=== PATIENT | female | born 1985 | race Caucasian/White ===

== ENCOUNTER 2018-03-26 14:15 | Outpatient (CLI) | payer OTHER | END 2018-03-26 14:16 | disposition home or self-care (01) | LOC: LAB.N 14:15 | PROVIDERS: ATTEND Nurse Practitioner | DX: Z32.00 Encounter for pregnancy test, result unknown (principal) | CPT/HCPCS: 36415; 84702 ==

== ENCOUNTER 2018-03-28 08:00 | Outpatient (CLI) | payer OTHER | END 2018-03-28 08:01 | disposition home or self-care (01) | LOC: LAB.N 08:00 | PROVIDERS: ATTEND Nurse Practitioner | DX: Z33.1 Pregnant state, incidental (principal) | CPT/HCPCS: 36415; 84702 ==

== ENCOUNTER 2018-04-15 08:00 | Outpatient (CLI) | payer OTHER ==
[2018-04-15 16:33] LABS: MUDS CUTOFF CONCENTRATIONS CUTOFF CONC BELOW:
[2018-04-15 17:04] LABS: AMPHETAMINE SCREEN,URINE NEGATIVE (NEGATIVE); BENZODIAZEPINES SCREEN, URINE NEGATIVE (NEGATIVE); COCAINE SCREEN URINE NEGATIVE (NEGATIVE); METHADONE SCREEN, URINE NEGATIVE (NEGATIVE); METHAMPHETAMINES SCREEN, URINE NEGATIVE (NEGATIVE); OPIATE SCREEN, URINE NEGATIVE (NEGATIVE); OXYCODONE SCREEN, URINE NEGATIVE (NEGATIVE); PROPOXYPHENE SCREEN, URINE NEGATIVE (NEGATIVE); TRICYCLIC ANTIDEPRESSANT,URINE NEGATIVE (NEGATIVE)
== END 2018-04-15 08:01 | disposition home or self-care (01) ==
LOC: LAB.R 08:00
PROVIDERS: ATTEND Obstetrics & Gynecology
DX: Z36.9 Encounter for antenatal screening, unspecified (principal)
CPT/HCPCS: 80306

== ENCOUNTER 2018-04-15 10:59 | Outpatient (CLI) | payer OTHER ==
[2018-04-15 12:04] LABS: BASOPHILS % (AUTO) 0.5 %; EOSINOPHILS # (AUTO) 0.1 10^3/uL (0.0-0.7); EOSINOPHILS % (AUTO) 1.2 %; HGB - HEMOGLOBIN 13.1 g/dL (12.0-16.0); LYMPHOCYTES # (AUTO) 1.3 10^3/uL (1.5-3.5); LYMPHOCYTES % (AUTO) 17.8 %; MEAN CORPUSCULAR HEMOGLOBIN 31.8 pg (27.0-31.0); MEAN CORPUSCULAR HGB CONC 34.1 g/dL (32.0-36.0); MEAN CORPUSCULAR VOLUME 93.2 fL (81.0-99.0); MONOCYTES # (AUTO) 0.5 10^3/uL (0.0-1.0); MONOCYTES % (AUTO) 6.1 %; NEUTROPHILS # (AUTO) 5.6 10^3/uL (1.5-6.6); NEUTROPHILS % (AUTO) 74.4 %; PLT - PLATELET COUNT 252 10^3/uL (130-450); RED BLOOD COUNT 4.14 10^6/uL (4.20-5.40); RED CELL DISTRIBUTION WIDTH 12.6 % (12.0-15.0); WHITE BLOOD COUNT 7.6 x10^3/uL (4.8-10.8)
[2018-04-15 12:06] LABS: BILIRUBIN,URINE NEGATIVE (NEGATIVE); GLUCOSE, URINE (UA) NEGATIVE (NEGATIVE); KETONES,URINE (UA) NEGATIVE (NEGATIVE); LEUKOCYTE ESTERASE, URINE NEGATIVE (NEGATIVE); NITRITE,URINE NEGATIVE (NEGATIVE); OCCULT BLOOD,URINE NEGATIVE (NEGATIVE); PROTEIN,URINE NEGATIVE (NEGATIVE); UROBILINOGEN,URINE 0.2 (NORMAL) E.U./dL (NORMAL)
[2018-04-15 12:14] LABS: CLARITY,URINE CLEAR (CLEAR)
[2018-04-15 12:17] LABS: RBC,URINE 0-5 /HPF (0-5); SQUAMOUS EPITHELIAL CELL,UR RARE Squamous (<= Few)
[2018-04-15 12:18] LABS: BACTERIA,URINE Rare /HPF (None Seen)
[2018-04-16 11:26] LABS: HEPATITIS B SURFACE ANTIGEN NON-REACTIVE (NON-REACTIVE)
[2018-04-16 12:31] LABS: HEPATITIS C ANTIBODY NON-REACTIVE (NON-REACTIVE)
[2018-04-16 14:01] LABS: HIV AG/AB 4TH GEN NON-REACTIVE (NON-REACTIVE)
== END 2018-04-15 11:00 | disposition home or self-care (01) ==
LOC: LAB 10:59
PROVIDERS: ATTEND Obstetrics & Gynecology
DX: Z36.9 Encounter for antenatal screening, unspecified (principal)
CPT/HCPCS: 36415; 80306; 81001; 81599; 84702; 85025; 86762; 86803; 86850; 86900; 86901; 87340; 87389

== ENCOUNTER 2018-04-22 19:54 | Outpatient (CLI) | payer OTHER ==
--- NOTE | 2018-04-23 10:45 | Ultrasound Report ---
Procedure Date: 04/22/2018 Accession Number: [id number] / [id number] Procedure: US - OB First Trimester CPT Code: FULL RESULT: EXAM: OB First Trimester, OB Transvaginal DATE: 04/22/2018 9:45 PM CLINICAL HISTORY: ENCOUNTER FOR TEST,RESULT POSITIVE TECHNIQUE: Real-time scanning was performed with termite control service representative static images obtained. COMPARISON: None LAST MENSTRUAL PERIOD: 01/25/2018. FINDINGS: There is a single live intrauterine gestation with a heart rate of 171 bpm a gestational sac diameter of 38.5 mm a crown-rump length of 35.7 mm and a yolk sac 6 mm in size. The sonographic age by crown-rump length is 10 weeks and 3 days. There is a posterior placenta with a 2.1 x 1.1 cm perigestational fluid collection. The maternal uterus is anteverted with a closed cervix. The right ovary measures 3.1 x 1.5 x 2.3 cm for a volume of 5.4 mL. The left ovary measures 2.8 x 1.7 x 2.2 cm for a volume of 5.4 mL. IMPRESSION: Single live intrauterine gestation with a sonographic age of 10 weeks and 3 days. Small perigestational hemorrhage measuring up to 2.1 cm.
--- NOTE | 2018-04-25 04:06 | Ultrasound Report ---
Procedure Date: 04/22/2018 Accession Number: [id number] / [id number] Procedure: US - OB Transvaginal CPT Code: FULL RESULT: EXAM: OB First Trimester, OB Transvaginal DATE: 04/22/2018 9:45 PM CLINICAL HISTORY: ENCOUNTER FOR TEST,RESULT POSITIVE TECHNIQUE: Real-time scanning was performed with data entry representative static images obtained. COMPARISON: None LAST MENSTRUAL PERIOD: 01/25/2018. FINDINGS: There is a single live intrauterine gestation with a heart rate of 171 bpm a gestational sac diameter of 38.5 mm a crown-rump length of 35.7 mm and a yolk sac 6 mm in size. The sonographic age by crown-rump length is 10 weeks and 3 days. There is a posterior placenta with a 2.1 x 1.1 cm perigestational fluid collection. The maternal uterus is anteverted with a closed cervix. The right ovary measures 3.1 x 1.5 x 2.3 cm for a volume of 5.4 mL. The left ovary measures 2.8 x 1.7 x 2.2 cm for a volume of 5.4 mL. IMPRESSION: Single live intrauterine gestation with a sonographic age of 10 weeks and 3 days. Small perigestational hemorrhage measuring up to 2.1 cm.
== END 2018-04-22 19:55 | disposition home or self-care (01) ==
LOC: DI 19:54
PROVIDERS: ATTEND Obstetrics & Gynecology
DX: Z32.01 Encounter for pregnancy test, result positive (principal); Z87.59 Personal history of other complications of pregnancy, childbirth and the puerperium
CPT/HCPCS: 76801; 76817

== ENCOUNTER 2018-05-27 11:07 | Outpatient (CLI) | payer OTHER | END 2018-05-27 11:08 | disposition home or self-care (01) | LOC: LAB 11:07 | PROVIDERS: ATTEND Obstetrics & Gynecology | DX: Z36.9 Encounter for antenatal screening, unspecified (principal); Z3A.15 15 weeks gestation of pregnancy | CPT/HCPCS: 36415; 80050; 80061; 81599; 82105; 82677; 83721; 84153; 84702; 86336 ==

== ENCOUNTER 2018-07-02 12:49 | Outpatient (CLI) | payer OTHER ==
--- NOTE | 2018-07-02 15:12 | Ultrasound Report ---
Reason: ENCOUNTER FOR OTHER SPECIFIED SCREENING Procedure Date: 07/02/2018 Accession Number: [id number] / [id number] Procedure: US - OB Detailed Eval CPT Code: FULL RESULT: EXAM: COMPLETE OBSTETRICAL ULTRASOUND EXAM DATE: 07/02/2018 02:06 PM. CLINICAL HISTORY: anatomic survey. COMPARISON: None. TECHNIQUE: Real-time sonographic evaluation of the fetus performed by the commercial roofing estimator. Multiple dental detail representative static images were saved for review. Additional transvaginal imaging to more accurately evaluate cervical length/placental position/etc. DATING: Established EGA 22 weeks 5 days with EWA 11/01/2018 based on LMP. EGA 20 weeks 4 days with EWA 11/15/2018 based on prior ultrasound. EGA 20 weeks 3 days with EWA 11/16/2018 based on the current ultrasound. GENERAL EVALUATION Joseph . Cardiac activity: 138 bpm. movement: Visualized. Presentation: Cephalic. Placenta: Posterior position. No evidence for previa. Umbilical cord: 3 vessel cord. Central placental cord origin. Amniotic fluid: Subjectively normal. MVP 4.1 cm. BIOMETRY Bi-Parietal Diameter (BPD): 4.7 cm, 20 weeks 1 day Head Circumference (HC): 18.8 cm, 21 weeks 0 days Abdominal Circumference (AC): 15.8 cm, 20 weeks 6 days Femur Length (FL): 3.3 cm, 20 weeks 1 day Estimated Weight: 367 gm ANATOMY The intracranial structures, profile, face/nose/lips, spine, stomach, abdominal wall and cord insertion, diaphragm, kidneys, bladder, and extremities were visualized and demonstrate no abnormality. 4 chamber heart and outflow tracts are not well evaluated on today's examination. MATERNAL STRUCTURES Uterus: Unremarkable. Cervix: Long and closed. Transabdominal length 6.7 cm. Right ovary/adnexa: Unremarkable. Left ovary/adnexa: Unremarkable. Free fluid: None. IMPRESSION: 1. Joseph live intrauterine with gestational age 20 weeks 4 days based on established EGA. 2. Estimated weight is within expected limits for assigned dating. 3. 4 chamber heart and outflow tracts are not well evaluated on today's examination. Recommend limited follow-up, for example in 1-2 weeks. No abnormalities are seen in other regards. RADIA
== END 2018-07-02 12:50 | disposition home or self-care (01) ==
LOC: DI 12:49
PROVIDERS: ATTEND Obstetrics & Gynecology
DX: Z36.89 Encounter for other specified antenatal screening (principal)
CPT/HCPCS: 76811

== ENCOUNTER 2018-07-18 11:13 | Outpatient (CLI) | payer OTHER ==
--- NOTE | 2018-07-18 14:47 | Ultrasound Report ---
Reason: ENCOUNTER FOR OTHER SCREENING, FOLLOW UP Procedure Date: 07/18/2018 Accession Number: [id number] / [id number] Procedure: US - OB F/U or Repeat CPT Code: FULL RESULT: EXAM: COMPLETE OBSTETRICAL ULTRASOUND EXAM DATE: 07/18/2018 12:29 PM. CLINICAL HISTORY: anatomic survey. COMPARISON: OB DETAILED EVAL 07/02/2018 12:50 PM OB FIRST TRIMESTER 04/22/2018 9:16 PM. TECHNIQUE: Real-time sonographic evaluation of the fetus performed by the butcher meat. Multiple safety representative static images were saved for review. DATING: Established EGA 22 weeks 6 days with EWA 11/15/2018 based on physician assigned due date based on first ultrasound. GENERAL EVALUATION Joseph . Cardiac activity: 163 bpm. movement: Visualized. Presentation: Cephalic. Placenta: Posterior position. No evidence for previa. Amniotic fluid: 17.1 MVP 5.3 cm. biometry is not performed given the close proximity to the most recent examination. ANATOMY Cardiac structures appear normal on the four-chamber view, left ventricular outflow tract and right ventricular outflow tract view completing the anatomy survey. MATERNAL STRUCTURES Uterus: Unremarkable. Cervix: Long and closed. Transabdominal length 5.8 cm. Adnexa were not seen. Free fluid: None. IMPRESSION: 1. Joseph live intrauterine with gestational age 22 weeks 6 days based on physician supplied estimated due date based on first ultrasound. 2. Normal completion anatomic survey. No anatomic abnormalities are detected at this time. RADIA
== END 2018-07-18 11:14 | disposition home or self-care (01) ==
LOC: DI 11:13
PROVIDERS: ATTEND Obstetrics & Gynecology
DX: Z36.2 Encounter for other antenatal screening follow-up (principal)
CPT/HCPCS: 76816

== ENCOUNTER 2018-08-22 09:33 | Outpatient (CLI) | payer OTHER ==
[2018-08-22 10:53] LABS: HGB - HEMOGLOBIN 12.6 g/dL (12.0-16.0); MEAN CORPUSCULAR HEMOGLOBIN 31.8 pg (27.0-31.0); MEAN CORPUSCULAR HGB CONC 35.1 g/dL (32.0-36.0); MEAN CORPUSCULAR VOLUME 90.7 fL (81.0-99.0); MEAN PLATELET VOLUME 7.4 fL (7.9-10.8); RED BLOOD COUNT 3.97 10^6/uL (4.20-5.40); RED CELL DISTRIBUTION WIDTH 12.9 % (12.0-15.0); WHITE BLOOD COUNT 9.8 x10^3/uL (4.8-10.8)
== END 2018-08-22 09:34 | disposition home or self-care (01) ==
LOC: LAB 09:33
PROVIDERS: ATTEND Obstetrics & Gynecology
DX: O34.211 Maternal care for low transverse scar from previous cesarean delivery (principal)
CPT/HCPCS: 36415; 82950; 85027; 86850

== ENCOUNTER 2018-10-06 12:33 | Outpatient (CLI) | payer OTHER ==
--- NOTE | 2018-10-06 14:03 | Ultrasound Report ---
Reason: EXCESSIVE GROWTH,ANTEPARTUM,UNSPECIFIED TRIM Procedure Date: 10/06/2018 Accession Number: [id number] / [id number] Procedure: US - OB F/U or Repeat CPT Code: FULL RESULT: EXAM: FOLLOW-UP OBSTETRICAL ULTRASOUND EXAM DATE: 10/06/2018 12:40 PM. CLINICAL HISTORY: Excessive growth, antepartum, unspecified trim. COMPARISON: OB F/U OR REPEAT 07/18/2018 12:29 PM OB DETAILED EVAL 07/02/2018 12:50 PM. TECHNIQUE: Real-time sonographic evaluation of the fetus performed by the sheet heater helper. Multiple guest experience representative static images were saved for review. DATING: Established EGA 34 weeks 2 days with EWA 11/15/2018 based on obstetric physician information. section is scheduled 11/12/2018. GENERAL EVALUATION Joseph . Cardiac activity: 152 bpm. movement: Visualized. Presentation: Cephalic. Placenta: Posterior position. Amniotic fluid: LUIS 21.8 cm. MVP 7.6 cm. BIOMETRY Bi-Parietal Diameter (BPD): 8.9 cm, 36 weeks 1 day Head Circumference (HC): 32.7 cm, 37 weeks 1 day Abdominal Circumference (AC): 30.8 cm, 34 weeks 6 days Femur Length (FL): 6.5 cm, 33 weeks 4 days Estimated Weight: 2522 grams, 60th percentile for 34 weeks 2 days. IMPRESSION: 1. Joseph live intrauterine with gestational age 34 weeks 2 days based on obstetric physician stated gestational age. 2. Estimated weight is within expected limits for assigned dating. 3. Normal interval growth compared to 07/02/2018. RADIA
== END 2018-10-06 12:34 | disposition home or self-care (01) ==
LOC: DI 12:33
PROVIDERS: ATTEND Obstetrics & Gynecology
DX: O36.60X0 Maternal care for excessive fetal growth, unspecified trimester, not applicable or unspecified (principal); Z3A.34 34 weeks gestation of pregnancy
CPT/HCPCS: 76816

== ENCOUNTER 2018-10-21 08:00 | Outpatient (CLI) | payer OTHER | END 2018-10-21 23:59 | disposition home or self-care (01) | LOC: LAB.R 08:00 | PROVIDERS: ATTEND Obstetrics & Gynecology | DX: Z3A.36 36 weeks gestation of pregnancy (principal) | CPT/HCPCS: 87491; 87591; 87797 ==

== ENCOUNTER 2018-11-11 11:49 | Outpatient (CLI) | payer OTHER ==
[2018-11-11 12:06] LABS: BASOPHILS # (AUTO) 0.1 10^3/uL (0.0-0.1); BASOPHILS % (AUTO) 0.7 %; EOSINOPHILS % (AUTO) 0.5 %; HGB - HEMOGLOBIN 13.4 g/dL (12.0-16.0); LYMPHOCYTES # (AUTO) 1.4 10^3/uL (1.5-3.5); LYMPHOCYTES % (AUTO) 15.8 %; MEAN CORPUSCULAR HEMOGLOBIN 31.2 pg (27.0-31.0); MEAN CORPUSCULAR HGB CONC 34.8 g/dL (32.0-36.0); MEAN CORPUSCULAR VOLUME 89.6 fL (81.0-99.0); MEAN PLATELET VOLUME 8.2 fL (7.9-10.8); MONOCYTES # (AUTO) 0.7 10^3/uL (0.0-1.0); MONOCYTES % (AUTO) 7.2 %; NEUTROPHILS # (AUTO) 6.9 10^3/uL (1.5-6.6); NEUTROPHILS % (AUTO) 75.8 %; PLT - PLATELET COUNT 211 10^3/uL (130-450); RED BLOOD COUNT 4.29 10^6/uL (4.20-5.40); RED CELL DISTRIBUTION WIDTH 13.6 % (12.0-15.0)
[2018-11-11 12:14] LABS: CREATININE 0.5 mg/dL (0.4-1.0)
== END 2018-11-11 11:50 | disposition home or self-care (01) ==
LOC: LAB 11:49
PROVIDERS: ATTEND Obstetrics & Gynecology
DX: Z01.818 Encounter for other preprocedural examination (principal); O82 Encounter for cesarean delivery without indication; Z3A.00 Weeks of gestation of pregnancy not specified
CPT/HCPCS: 36415; 80048; 85025; 86850; 86900; 86901

== ENCOUNTER 2018-11-12 05:52 | Inpatient (IN) | payer OTHER ==
[2018-11-12] MEDS ORDERED: SODIUM CHLORIDE FLUSH 0.9% 10 ML SYRINGE ONE (06:08)
[2018-11-12] MEDS ORDERED: ceFAZolin 2 GM in SODIUM CHLORIDE 0.9% 100ML 100 ML IV SCH (06:30)
--- NOTE | 2018-11-12 06:54 | ANESTHESIA ---
Pre-Anesthesia VS, & Labs - Diagnosis previous C/S - Procedure repeat c/s Vital Signs: Temp Pulse Resp BP Pulse Ox 36.8 C 70 16 125/78 99 11/12/18 06:44 11/12/18 06:44 11/12/18 06:44 11/12/18 06:44 11/12/18 06:44 Height 5 ft 1 in Weight (kg) 72.575 kg - NPO >8 hours - Is Patient ?: Yes - Lab Results Current Lab Results: Hbg-13, hct-34, plat 211 Home Medications and Allergies Active Medications Cefazolin Sodium 2 gm/ Sodium (Chloride) 100 mls @ 200 mls/hr IV ONCE ECHO Stop: 11/12/18 09:00 Lactated Ringer's (Lr) 1,000 mls @ 125 mls/hr IV .Q8H ECHO PNV Allergies/Adverse Reactions: Allergies Allergy/AdvReac Type Severity Reaction Status Date / Time No Known Drug Allergies Allergy Verified 11/12/18 06:42 Anes History & Medical History - Medical History Cardiovascular: reports: None Pulmonary: reports: None Gastrointestinal: reports: None Urinary: reports: None Neuro: reports: None Musculoskeletal: reports: None Endocrine/Autoimmune: reports: None Blood Disorders: reports: None Smoking Status: Former smoker (quit 2009) Psychosocial: reports: Anxiety - Surgical History General: Cholecystectomy Gynecologic: section - Obstetrical History : 2 Parity: 1 Events: positive: None Complications: positive: None Exam General: Alert, Oriented x3, Cooperative, No acute distress Dental: WNL Mouth Openin Fingerbreadth Neck Mobility: Normal Mallampati classification: II Thyromental Distance: 4-6 cm Respiratory: Lungs clear, Normal breath sounds, No respiratory distress, No accessory muscle use Cardiovascular: Regular rate, Normal S1, Normal S2, No murmurs Mental/Cognitive Status: Alert/Oriented X3, Normal for patient Plan Anesthesia Type: Spinal Consent for Procedure(s) Verified and Reviewed: Yes Code Status: Attempt Resuscitation ASA classification: 2-Mild systemic disease Is this case an emergency?: No
[2018-11-12] MEDS ORDERED: CITRIC ACID/SODIUM CITRATE 15 ML UDC PO SCH (07:03)
[2018-11-12] MEDS ORDERED: CITRIC ACID/SODIUM CITRATE 15 ML UDC PO ONE ×2 (07:21→07:24)
[2018-11-12] MEDS ORDERED: LACTATED RINGERS 1,000 ML IV ONE ×2 (08:11→09:13)
[2018-11-12] MEDS ORDERED: ePHEDrine 50 MG/ML VIAL IVP ONE (08:43)
[2018-11-12] MEDS ORDERED: ONDANSETRON 4 MG/2 ML VIAL IVP ONE (08:43)
[2018-11-12] MEDS ORDERED: MORPHINE PF 5 MG/10 ML AMP EP ONE (08:43)
[2018-11-12] MEDS ORDERED: OXYTOCIN 10 UNIT/ML VIAL IV ONE (08:43)
[2018-11-12] MEDS ORDERED: ONDANSETRON 4 MG/2 ML VIAL IVP PRN (09:16)
[2018-11-12] MEDS ORDERED: diphenhydrAMINE 25 MG CAPSULE PO PRN (09:16)
--- NOTE | 2018-11-12 09:22 | OPERATIVE REPORT ---
Operative Report - General Admit Date: 11/12/18 Procedure Date: 11/12/18 Planned Procedure: Repeat LTC/S Pre-Op Diagnosis: term cyesis, prior C/S Procedure Performed: repeat LTC/S Post Op Diagnosis: Same - Procedure Note Primary Surgeon: Gianni Shi MD Secondary Surgeon: Giovanni Hurt DO Anesthesia Provider: Raheem Roldan CRNA Anesthesia Technique: Spinal Pathology: NONE Estimated Blood Loss (mL): 600 - Other Other Information/Narrative: [id number]
--- NOTE | 2018-11-12 10:09 | OPERATIVE REPORT ---
DATE OF SERVICE: 11/12/2018 Physician: Gianni Shi MD PREOPERATIVE DIAGNOSES 1. Term cyesis. 2. Previous section. POSTOPERATIVE DIAGNOSES 1. Term cyesis. 2. Previous section. PROCEDURE PERFORMED: Repeat low transverse section. SURGEON: Gianni Shi MD. SENIOR DIRECTOR INSIGHT: Carlos Dugan DO. ANESTHESIA PROVIDER: Dany Roldan CRNA. ANESTHESIA: Spinal. ESTIMATED BLOOD LOSS: 600 mL. FINDINGS: Live male . was in the left occiput anterior, normal pelvis, placenta posterior. DESCRIPTION OF PROCEDURE: Following an adequate spinal anesthesia, the patient was placed in the supine position. Mobley catheter was placed under sterile condition, and a roll was placed under the right hip. At this point, she was prepped and draped in the usual fashion. A timeout was performed in which the patient was identified as well as potential concerns. An incision was carried down through the previous Pfannenstiel incision, down to the fascia. The fascia was incised transversely. Then, using both sharp and blunt dissection, was freed from the rectus abdominis and pyramidalis. The rectus had some adhesions at the midline. These were taken down utilizing a knife. The peritoneum was tented with hemostat and then entered using Mera scissors. The incision was carried superiorly and inferiorly. Care was taken to avoid injury to bowel or bladder. At this point, a bladder retractor was placed and bladder flap was developed using both blunt and sharp dissection. The lower uterine segment was noted to be somewhat tenuous. The incision was carried into the uterus with a #10 blade. The membranes were not ruptured. The incision was carried laterally using Mera scissors and then the finger spread technique. The amniotic membranes were then ruptured, and clear amniotic fluid was encountered. The infant was noted to be left occiput transverse. It was brought up to the incision, and with some difficulty was brought through the incision. A loose nuchal cord was found at this particular time. The remainder of the was delivered without difficulty. The cord was doubly clamped, divided, and handed to the nursery team that was standing by. At this point, cord blood samples were obtained, and then the uterus was exteriorized. The placenta was manually delivered and noted to be posterior to the uterus. It was wrapped in a moist lap and then cleansed in the internal portion with a dry lap. The lower portions of the incision were grasped with ring forceps. The cervix was dilated with a ring forceps, and then incision was closed using a running locking suture of 0 Vicryl. There was some difficulty with bleeding on the left hand side of the uterine incision. This was treated with 2 gvqtmd-ln-diawmx, with good hemostasis. The incision was then imbricated, and then there was some bleeding at the midline. This was also treated with a rseevn-wb-nhlbu. The incision was inspected. No further bleeding was noted. The uterus was tipped forward. The cul-de-sac was suctioned clear of any clot, then irrigated. The uterus was delivered back in the abdominal cavity. The gutters were likewise irrigated. No further blood was noted, and the incision was inspected and noted to not be bleeding. The peritoneum was closed utilizing 2-0 Vicryl, the rectus reapproximated with 2 kkwxjx-kp-miynal of 2-0 Vicryl, and the incision itself was closed utilizing looped PDS. This was noted to show a good closure. The subcutaneous tissue was irrigated. No bleeding was noted, so the area was closed utilizing 2-0 Vicryl in a running suture. The skin incision was closed using 4-0 Monocryl, and then dressed with Mastisol as well as Steri-Strips. The patient tolerated the procedure well and was taken to recovery in stable condition. Sponge and needle counts were correct. TD: 11/12/2018 09:34 ARCHIE
[2018-11-12] MEDS: ACETAMINOPHEN 500 MG TABLET PO SCH ×2 (10:30→18:03)
[2018-11-12] MEDS: KETOROLAC 30 MG/ML VIAL IVP SCH ×2 (10:30→18:03)
[2018-11-12] MEDS: SODIUM CHLORIDE FLUSH 0.9% 10 ML SYRINGE IVP SCH ×2 (10:30→18:03)
[2018-11-12] MEDS: DOCUSATE SODIUM 100 MG CAPSULE PO SCH ×2 (10:44→22:33)
[2018-11-12] MEDS: SODIUM CHLORIDE FLUSH 0.9% 10 ML SYRINGE IVP PRN (11:09)
[2018-11-12] MEDS: SIMETHICONE CHEW 80 MG TABLET PO SCH ×2 (18:03→18:22)
[2018-11-12] MEDS: LACTATED RINGERS 1,000 ML IV SCH ×2 (18:21)
[2018-11-12] MEDS ORDERED: oxyCODONE 5 MG TABLET PO PRN (20:56)
[2018-11-13] MEDS: KETOROLAC 30 MG/ML VIAL IVP SCH ×2 (00:25→06:19)
[2018-11-13] MEDS: SODIUM CHLORIDE FLUSH 0.9% 10 ML SYRINGE IVP SCH ×2 (00:25→18:17)
[2018-11-13] MEDS: ACETAMINOPHEN 500 MG TABLET PO SCH ×3 (02:28→16:47)
[2018-11-13] MEDS: SODIUM CHLORIDE FLUSH 0.9% 10 ML SYRINGE IVP PRN ×2 (06:18→06:19)
[2018-11-13 06:36] LABS: BASOPHILS % (AUTO) 0.4 %; EOSINOPHILS # (AUTO) 0.1 10^3/uL (0.0-0.7); EOSINOPHILS % (AUTO) 0.8 %; HGB - HEMOGLOBIN 11.4 g/dL (12.0-16.0); LYMPHOCYTES # (AUTO) 1.4 10^3/uL (1.5-3.5); LYMPHOCYTES % (AUTO) 11.9 %; MEAN CORPUSCULAR HEMOGLOBIN 31.4 pg (27.0-31.0); MEAN CORPUSCULAR HGB CONC 34.6 g/dL (32.0-36.0); MEAN CORPUSCULAR VOLUME 90.9 fL (81.0-99.0); MONOCYTES # (AUTO) 1.1 10^3/uL (0.0-1.0); NEUTROPHILS # (AUTO) 9.3 10^3/uL (1.5-6.6); NEUTROPHILS % (AUTO) 77.9 %; PLT - PLATELET COUNT 179 10^3/uL (130-450); RED BLOOD COUNT 3.63 10^6/uL (4.20-5.40); WHITE BLOOD COUNT 11.9 x10^3/uL (4.8-10.8)
--- NOTE | 2018-11-13 08:27 | PROVIDER PROGRESS NOTE ---
Subjective - General Admit Date: 11/12/18 Procedure Date: 11/12/18 Post Op Days: 1 Procedure Performed: PLTC/S - Review of Systems Wound/Incisions: positive: Dressing dry and intact General: positive: No symptoms (Pain 2-3/10. Ambulating) Pulmonary: positive: Cough (long standing) Gastrointestinal: negative: Nausea, Vomiting, Flatus Objective - Patient Data Reviewed Vital Signs: Yes Vital Signs: Vital Signs x48h Temp Pulse Resp BP Pulse Ox 11/13/18 07:52 37 C 75 18 100 11/13/18 06:30 16 11/13/18 05:35 18 11/13/18 04:20 36.6 C 80 16 114/60 97 11/13/18 03:00 16 11/13/18 02:00 18 11/13/18 01:00 16 Weight: Weight 11/11/18 11/12/18 11/13/18 23:59 23:59 23:59 Weight (kg) 72.575 kg Intake & Output: Intake and Output Totals x24h 11/11/18 11/12/18 11/13/18 23:59 23:59 23:59 Intake Total 2300 Output Total 2250 675 Balance 50 -675 - Lab Results Lab Results: 11/13/18 06:28 Other Lab Results: Lab Results x24hrs 11/13/18 Range/Units 06:28 WBC 11.9 H (4.8-10.8) x10^3/uL RBC 3.63 L (4.20-5.40) 10^6/uL Hgb 11.4 L (12.0-16.0) g/dL Hct 33.0 L (37.0-47.0) % MCV 90.9 (81.0-99.0) fL MCH 31.4 H (27.0-31.0) pg MCHC 34.6 (32.0-36.0) g/dL RDW 14.0 (12.0-15.0) % Plt Count 179 (130-450) 10^3/uL MPV 8.0 (7.9-10.8) fL Neut # (Auto) 9.3 H (1.5-6.6) 10^3/uL Lymph # (Auto) 1.4 L (1.5-3.5) 10^3/uL Dundy # (Auto) 1.1 H (0.0-1.0) 10^3/uL Eos # (Auto) 0.1 (0.0-0.7) 10^3/uL Baso # (Auto) 0.0 (0.0-0.1) 10^3/uL Absolute Nucleated RBC 0.00 x10^3/uL Nucleated RBC % 0.0 /100WBC - Current Medications Current Medications: Current Medications Generic Name Dose Route Start Last Admin Trade Name Freq PRN Reason Stop Dose Admin Acetaminophen 1,000 mg 11/12/18 10:00 11/13/18 02:28 Tylenol PO 1,000 mg Q8H ECHO Administration Diphenhydramine HCl 25 mg 11/12/18 09:16 11/12/18 11:09 Benadryl PO 25 mg Q6H PRN Administration ITCHING Docusate Sodium 100 mg 11/12/18 10:00 11/12/18 22:33 Colace 100mg Capsule PO 100 mg BID ECHO Administration Lactated Ringer's 1,000 mls @ 100 mls/hr 11/12/18 10:00 11/12/18 18:21 Lr IV Not Given .Q10H ECHO Simethicone 80 mg 11/12/18 14:00 11/12/18 18:22 Mylicon PO Not Given TID ECHO Sodium Chloride 10 ml 11/12/18 09:16 11/13/18 06:19 Normal Saline Flush 0.9% IVP 10 ml PRN PRN Administration NEEDED PER PROVIDER ORDERS Sodium Chloride 10 ml 11/12/18 17:00 11/13/18 00:25 Normal Saline Flush 0.9% IVP 10 ml 0100,0900,1700 ECHO Administration - Physical Exam Wound/Incisions: positive: Dressing dry and intact General Appearance: positive: No acute distress, Alert (moving well) Respiratory: positive: Chest non-tender, No respiratory distress, Breath sounds nml. negative: Wheezes, Rales Cardiovascular: positive: Regular rate & rhythm, No murmur, No gallop Abdomen: positive: Non-tender, Nml bowel sounds, No distention Back: negative: CVA tenderness (R), CVA tenderness (L) Skin: positive: Color nml, No rash, Warm, Dry Extremities: negative: Calf tenderness, Patricia's sign/cords Neurologic/Psychiatric: positive: Oriented x3 Impression/Plan - Problem List Problem List: POD #1 excellent progress.
[2018-11-13] MEDS: LACTATED RINGERS 1,000 ML IV SCH (08:46)
[2018-11-13] MEDS: SIMETHICONE CHEW 80 MG TABLET PO SCH ×3 (09:29→21:24)
[2018-11-13] MEDS: DOCUSATE SODIUM 100 MG CAPSULE PO SCH ×2 (09:29→21:24)
[2018-11-13] MEDS: IBUPROFEN 800 MG TABLET PO SCH ×2 (11:34→16:48)
[2018-11-13] MEDS: oxyCODONE 5 MG TABLET PO PRN ×2 (18:16→22:02)
[2018-11-14] MEDS: IBUPROFEN 800 MG TABLET PO SCH ×2 (00:03→06:13)
[2018-11-14] MEDS: ACETAMINOPHEN 500 MG TABLET PO SCH (01:20)
[2018-11-14] MEDS: oxyCODONE 5 MG TABLET PO PRN (01:20)
[2018-11-14 08:52] VITALS: BP 110/63
--- NOTE | 2018-11-14 08:57 | PROVIDER PROGRESS NOTE ---
Subjective - General Admit Date: 11/12/18 Procedure Date: 11/12/18 Post Op Days: 2 Procedure Performed: PLTC/S - Review of Systems Wound/Incisions: positive: Healing well, No drainage General: positive: No symptoms (Pain 4/10. Motrin not as effective as toradol. Ambulating) Pulmonary: positive: Cough (long standing) Gastrointestinal: positive: Flatus. negative: Nausea, Vomiting Psychiatric: positive: No symptoms Objective - Patient Data Reviewed Vital Signs: Yes Vital Signs: Vital Signs x48h Temp Pulse Resp BP Pulse Ox 11/14/18 05:40 36.6 C 70 17 117/61 96 Weight: Weight 11/12/18 11/13/18 11/14/18 23:59 23:59 23:59 Weight (kg) 72.575 kg Intake & Output: Intake and Output Totals x24h 11/12/18 11/13/18 11/14/18 23:59 23:59 23:59 Intake Total 2300 Output Total 2250 675 Balance 50 -675 - Lab Results Lab Results: 11/13/18 06:28 - Current Medications Current Medications: Current Medications Generic Name Dose Route Start Last Admin Trade Name Freq PRN Reason Stop Dose Admin Acetaminophen 1,000 mg 11/12/18 10:00 11/14/18 01:20 Tylenol PO 1,000 mg Q8H ECHO Administration Diphenhydramine HCl 25 mg 11/12/18 09:16 11/12/18 11:09 Benadryl PO 25 mg Q6H PRN Administration ITCHING Docusate Sodium 100 mg 11/12/18 10:00 11/13/18 21:24 Colace 100mg Capsule PO 100 mg BID ECHO Administration Lactated Ringer's 1,000 mls @ 100 mls/hr 11/12/18 10:00 11/13/18 08:46 Lr IV Not Given .Q10H ECHO Ibuprofen 800 mg 11/13/18 11:00 11/14/18 06:13 Motrin PO 800 mg Q6HR ECHO Administration Oxycodone HCl 5 mg 11/12/18 20:55 11/14/18 01:20 Roxicodone PO 5 mg Q4HR PRN Administration PAIN Simethicone 80 mg 11/12/18 14:00 11/13/18 21:24 Mylicon PO 80 mg TID ECHO Administration Sodium Chloride 10 ml 11/12/18 09:16 11/13/18 06:19 Normal Saline Flush 0.9% IVP 10 ml PRN PRN Administration NEEDED PER PROVIDER ORDERS Sodium Chloride 10 ml 11/12/18 17:00 11/13/18 18:17 Normal Saline Flush 0.9% IVP 10 ml 0100,0900,1700 ECHO Administration - Physical Exam Wound/Incisions: positive: Healing well, No drainage General Appearance: positive: No acute distress, Alert Respiratory: positive: Chest non-tender, No respiratory distress, Breath sounds nml, Other (Pt has a cough which is productive but no erna). negative: Wheezes, Rales Cardiovascular: positive: Regular rate & rhythm, No murmur, No gallop, Irregularly irregular Abdomen: positive: Nml bowel sounds, Tenderness (mild) Skin: positive: Color nml, No rash, Warm, Dry Impression/Plan - Problem List Problem List: POD # 2 excellent progress long productive cough. has tried Z anthony, augmentin. repeat Scarlet cruz, suggested Claritin. Discharge meds oxycodone 5 mg #20 motrin 800 mg colace 100 mg micronor Scarlet cruz
--- NOTE | 2018-11-14 08:58 | Labor Flowsheet ---
Labor Flowsheet Datetime Report Generated by CPN: 11/14/2018 08:57 Datetime: 11/12/2018 06:45 VITAL SIGNS Pulse: 66 SpO2 (%): 99
--- NOTE | 2018-11-14 09:03 | Discharge Plan ---
Discharge Plan Disposition: 01 Home, Self Care Condition: Good Diet: Regular Shower Restrictions: No Driving Restrictions: Yes (no drive while on narcotics) No Smoking: If you smoke, Please STOP! Call for help.
--- NOTE | 2018-11-14 10:56 | DISCHARGE SUMMARY ---
Physician: Gianni Shi MD DATE OF ADMISSION: 11/12/2018 DATE OF DISCHARGE: 11/14/2018 ADMITTING DIAGNOSES 1. A 39-week gestation. 2. Previous section. DISCHARGE DIAGNOSES 1. A 39-week gestation. 2. Previous section. PROCEDURE: Repeat low transverse section. PRESENTING HISTORY: The patient is a 33-year-old. She is 2, para 1. She started early with her visits. She is 39.3 weeks. She had previous , is here for repeat section. Her OB course was unremarkable. She had early visits. Her blood sugar test was normal. She presented for repeat low transverse section. LABORATORY DATA Patient's preop hemoglobin was 13.4. Hematocrit was 38.4, platelets were 211, white count was 9.0. Postoperative day #1, her hemoglobin fell to 11.4, hematocrit 33, white count elevated to 11.9, platelets were 179. HOSPITAL COURSE: The patient admitted, taken to the operating room, at which time a repeat low transverse section was performed without difficulty. At time of delivery, her estimated blood loss was 600 mL. A live with Apgars 8 and 9, was delivered. Her course has been unremarkable. Her diet has been advanced. She is passing flatus. She is well controlled on oral pain medications. DISCHARGE MEDICATIONS She is being discharged to home today on medications of: 1. Motrin 800 mg. 2. Oxycodone 5 mg. 3. Colace 100 mg. 4. Nor-QD. 5. Z-Marcus. She is instructed to discuss , its advantages. She is instructed to follow up in the clinic in one week for wound check. TD: 11/14/2018 09:15 ARCHIE
== END 2018-11-14 11:00 | disposition home or self-care (01) | DRG 788 ==
LOC: FBP 05:52
PROVIDERS: ADMIT Obstetrics & Gynecology; ATTEND Obstetrics & Gynecology
PROC: 10D00Z1 Extraction of Products of Conception, Low, Open Approach (ICD-10-PCS; principal; 2018-11-12 07:30)
DX: O34.211 Maternal care for low transverse scar from previous cesarean delivery (principal); O69.9XX0 Labor and delivery complicated by cord complication, unspecified, not applicable or unspecified; Z37.0 Single live birth; O90.89 Other complications of the puerperium, not elsewhere classified; R05 Cough; Z87.891 Personal history of nicotine dependence; Z3A.39 39 weeks gestation of pregnancy
CPT/HCPCS: 85025; A9270; J7120

== ENCOUNTER 2019-01-14 09:31 | Outpatient (CLI) | payer OTHER ==
[2019-01-15 12:37] LABS: HEPATITIS B SURFACE ANTIGEN NON-REACTIVE (NON-REACTIVE)
== END 2019-01-14 09:32 | disposition home or self-care (01) ==
LOC: LAB.N 09:31
PROVIDERS: ATTEND Nurse Practitioner
DX: Z13.89 Encounter for screening for other disorder (principal)
CPT/HCPCS: 36415; 81599; 86735; 86762; 86765; 86787; 87340

== ENCOUNTER 2020-11-17 12:55 | Outpatient (CLI) | payer OTHER ==
[2020-11-17 13:32] VITALS: BP 125/84
--- NOTE | 2020-11-17 13:32 | SLEEP CARE CONSULTATION ---
Information from patient questionnaire entered by Jelly Cadet. I have reviewed and concur with the information entered by Jelly Cadet. This document represents the service I personally performed and the decisions made by me, Kaitlin Mcrae ARNP. History of Present Illness Service Date and Time: 11/17/2020 1255 Reason for Visit: New patient Chief Complaint: reports: Unrefreshed sleep, Snoring, Excessive daytime sleepiness, Frequent awakenings at night. denies: Observed pauses in breathing Date of Onset: over 2 years Usual bedtime: 11 pm Time it takes to fall asleep: 20 minutes Snores at night: Yes (sometimes) Observed to quit breathing while asleep: No Sleeps alone due to snoring: No Number of times waking at night: 3 Reasons for waking at night: reports: Bathroom, Other (tingling in hands) Toss, Turn, or Twitch while sleeping: Yes Recalls having dreams: No Usually gets out of bed at: 7:30 am Feels refreshed in the morning: No Morning headache: Yes (2 times a week, last about 30 minutes) Sleepy or fatigued during the day: Yes Ever fallen asleep while driving: No Takes day naps: No Dreams during day naps: No Prior sleep studies: No Additional HPI information: I had the pleasure of seeing COLLEEN LANDA today regarding the possibility of her having a sleep disorder. Her current complaints are frequent night awakenings. She wakes up 3-4 times at night to use bathroom or with hands tingling. She does snore a little. Her has not noticed pauses in breathing but is not sure he pays attention. She does not wake up feeling rested and feels sleepy during the day. She is able to go to sleep but then awakens several times at night. She has anxiety and is on sertraline every morning. 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 Patient is and lives in [place]. Have you smoked in the past 12 months: No Cigarettes per day (20/pack): 2 (only for 6 months) Quit date: 2009 Alcohol use: Yes Alcohol amount and frequency: 1 glass 3 days a week Caffeine use: Yes Caffeine amount and frequency: 2 cups daily Family History Family history of sleep disordered breathing: Yes (father) Family Hx Sleep Apnea: Father: Snoring Allergies and Home Medications Drug allergies reviewed: Yes (NKDA) Home medication list reviewed: Yes Allergy and home medication list: Sertraline 50 mg daily Review of Systems Weight gain over past 5 years: 15 Cardiovascular: reports: irregular heart rate or pulse (told she had this years ago, she was check and was fine). denies: high blood pressure Gastrointestinal: reports: abdominal pain Neurological: reports: headaches, speech dysfunction Psychiatric: reports: anxiety, mood disorder Ear/Nose/Throat: reports: nasal congestion, sinus problems, dry mouth/throat, wisdom teeth removed. denies: tonsillectomy Endocrine: reports: sluggishness, too hot or cold Musculoskeletal: reports: joint pain (fingers), back pain Immunologic: reports: sneezing Physical Exam Blood Pressure: 125/84 Cuff size: wrist Heart Rate: 85 O2 Saturation: 99 Height: 5 ft 1 in Weight: 144 lb Body Mass Index: 27.1 BMI Classification: Overweight Neck circumference: 14.25 (inches) Nostrils: patent to airflow Mouth and throat: narrow oropharynx Soft palate: normal Hard palate: normal Uvula: normal Uvula visualization: 50% Mallampati Class II Tongue: enlarged in size with teeth turner on lateral edges Tonsils: 1+ Chin and jaw: normal size and position Neck: normal w/o lymphadenopathy or thyromegaly Heart: regular rate and rhythm Lungs: clear bilaterally Impression and Plan 1. Suspected Obstructive Sleep Apnea-Hypopnea Syndrome, as suggested by a hi story of loud and irregular snoring, morning headache, frequent awakening during the night, unrefreshed sleep, cognitive impairment, and excessive daytime sleepiness. Narrow oropharynx and obesity are common predisposing factors for obstructive sleep apnea-hypopnea syndrome. I recommend proceeding to polysomnography to confirm the diagnosis and to assess severity. If the patient has significant sleep disordered breathing, a manual CPAP titration study will also be performed to find the optimal treatment pressure. I informed the patient of what the sleep studies involve and after some discussion, obtained agreement to proceed. The pathophysiology of obstructive sleep apnea-hypopnea syndrome was discussed with the patient and health risks of cardiovascular and cerebrovascular disease if not treated. Risks of drowsy driving discussed in detail and patient advised to avoid long distance driving and to heat treat puller at the first sign of drowsiness. Patient agreed to plan. * Schedule polysomnography +- manual CPAP titration study and return in 1-2 weeks after the study to discuss result and initiate therapy. * Avoid long distance driving or driving when feeling sleepy. * Avoid alcohol, sedative and muscle relaxant around bedtime. * Attempt to lose weight. * Review instructions provided by trained office staff on how to prepare for the sleep study. * Return for follow-up after sleep study completed. Counseling Topics: Weight loss health impact Visit Type: In Office Time Spent with Patient (minutes): 31 Provider Statement: I spent 100% of the Face to Face Visit with the patient with greater than 50% spent counseling the patient and coordination of care.
== END 2020-11-17 12:56 | disposition home or self-care (01) ==
LOC: SC 12:55
PROVIDERS: ATTEND Nurse Practitioner Family
DX: G47.10 Hypersomnia, unspecified (principal); R51.9 Headache, unspecified; G47.8 Other sleep disorders; R06.83 Snoring; R41.89 Other symptoms and signs involving cognitive functions and awareness; E66.3 Overweight; Z68.27 Body mass index [BMI] 27.0-27.9, adult
CPT/HCPCS: 99203; 99212

== ENCOUNTER 2020-12-27 14:59 | Outpatient (CLI) | payer OTHER | END 2020-12-27 15:00 | disposition home or self-care (01) | LOC: SC 14:59 | PROVIDERS: ATTEND Nurse Practitioner Family | DX: G47.10 Hypersomnia, unspecified (principal); G47.8 Other sleep disorders; R09.02 Hypoxemia; R06.83 Snoring; Z68.27 Body mass index [BMI] 27.0-27.9, adult; E66.3 Overweight | CPT/HCPCS: 95806 ==

== ENCOUNTER 2021-01-05 13:53 | Outpatient (CLI) | payer OTHER ==
--- NOTE | 2021-01-05 14:00 | SLEEP CARE CONSULTATION ---
Information from patient questionnaire entered by Kimberlee Velazco. I have reviewed and concur with the information entered by Kimberlee Velazco. This document represents the service I personally performed and the decisions made by , Kaitlin Mcrae ARNP. History of Present Illness Service Date and Time: 01/05/2021 1400 Initial [place] Sleepiness Scale score: 13 (in 2020) Current [place] Sleepiness Scale score: 13 Additional HPI information: COLLEEN LANDA returns via Telehealth visit for follow up and results of the recently performed home sleep study. The patient was informed of the following findings: no significant sleep disordered breathing with an average AHI of 3.8 and alayna oxygen saturation of 87%. I explained the pathophysiology behind obstructive sleep apnea. Patient does not have sleep apnea and was advised how weight gain could increase the risk of developing sleep apnea in the future. I strongly encouraged the patient to lose weight. Patient has moderate snoring. Snoring can be reduced by weight loss. Weight loss is best achieved with diet consult. Patient instructed to contact PCP for referral. Snoring can also be treated with an oral appliance from a dentist. Advised to check insurance coverage. In addition, an ENT evaluation can be do to see if other treatment is indicated. Patient counseled not drink alcohol less than 4 hours before bedtime as it can increase snoring and apnea. Patient was cautioned about risks of drowsy driving until sleepiness symptoms resolve. Sleep Study - Results Type of Sleep Study: Home sleep study Prior sleep studies: No Polysomnography/Home Sleep Study results: Physician Impression: The quality of the study is good. The length of the study is adequate (> 240 minutes). Please also see the tabulated and graphic data. 1. Nos with an AHI of 3.8/hr and alayna SaO2 of 87%. During the study, the patient had 26 apneas (26 obstructive, 0 central, 0 mixed) and 5 hypopneas. The patient only slept supine during this study (supine AHI was 3.8 and non-supine, 0.00). 2. Hypoxemia (ICD-10 R09.02), minimal, with the lowest oxygen saturation of 87 % and 0.2 minutes with SaO2 under 90%. Baseline oxygen saturation was normal (Average oxygen saturation was 96%). Allergies and Home Medications Home medication list reviewed: Yes (no new meds) Review of Systems Review of systems same as previous: Yes (no changes) Physical Exam Vital signs obtained and entered by: telehealth visit to reduce exposure during Covid pandemic Height: 5 ft 1 in Impression and Plan Snoring but no significant sleep disordered breathing. Patient advised that often weight loss will reduce snoring as well as apnea risk. An oral appliance can also be used for snoring. This would require a dental consultation. Patient cautioned not to use other online appliances as can cause bite issues. A list of accredited dentists in [facility] and one local dentist who makes oral appliances is available in the office. Patient is advised to check if insurance will cover. An ENT consult can also be helpful to determine if any other treatment is an option. * Attempt to lose weight * Avoid alcohol consumption near bedtime * The patient is cautioned about driving until sleepiness is completely resolved. * Return in as needed for follow up. Counseling Topics: Weight loss health impact Visit Type: Telehealth Video Video Type: VSee Patient Location: Home Location of Provider: Office Patient agrees and consents to this telehealth visit type: Yes Patient agrees to have their insurance billed: Yes Time Spent with Patient (minutes): 10 Provider Statement: I spent 100% of the Telehealth Video Call with the patient with greater than 50% spent counseling the patient and coordination of care.
== END 2021-01-05 13:54 | disposition home or self-care (01) ==
LOC: SC 13:53
PROVIDERS: ATTEND Nurse Practitioner Family
DX: R06.83 Snoring (principal); G47.10 Hypersomnia, unspecified; G47.8 Other sleep disorders; R51.9 Headache, unspecified; R41.89 Other symptoms and signs involving cognitive functions and awareness; E66.3 Overweight; Z68.27 Body mass index [BMI] 27.0-27.9, adult

== ENCOUNTER 2021-09-12 11:00 | Outpatient (CLI) | payer OTHER ==
[2021-09-12 17:58] LABS: BASOPHILS # (AUTO) 0.1 10^3/uL (0.0-0.1); EOSINOPHILS # (AUTO) 0.2 10^3/uL (0.0-0.7); EOSINOPHILS % (AUTO) 3.8 %; HCT - HEMATOCRIT 42.4 % (37.0-47.0); HGB - HEMOGLOBIN 13.8 g/dL (12.0-16.0); LYMPHOCYTES # (AUTO) 1.4 10^3/uL (1.5-3.5); LYMPHOCYTES % (AUTO) 28.3 %; MEAN CORPUSCULAR HEMOGLOBIN 30.4 pg (27.0-31.0); MEAN CORPUSCULAR HGB CONC 32.5 g/dL (32.0-36.0); MEAN CORPUSCULAR VOLUME 93.4 fL (81.0-99.0); MEAN PLATELET VOLUME 10.5 fL (7.9-10.8); MONOCYTES # (AUTO) 0.4 10^3/uL (0.0-1.0); MONOCYTES % (AUTO) 8.7 %; NEUTROPHILS # (AUTO) 2.9 10^3/uL (1.5-6.6); NEUTROPHILS % (AUTO) 57.6 %; PLT - PLATELET COUNT 242 10^3/uL (130-450); RED BLOOD COUNT 4.54 10^6/uL (4.20-5.40); RED CELL DISTRIBUTION WIDTH 12.5 % (12.0-15.0); WHITE BLOOD COUNT 5.1 x10^3/uL (4.8-10.8)
[2021-09-12 18:51] LABS: THYROID STIMULATING HORMONE 1.87 uIU/mL (0.34-5.60)
[2021-09-12 19:00] LABS: ALBUMIN 4.2 g/dL (3.2-5.5); ALBUMIN/GLOBULIN RATIO 1.4 (1.0-2.2); ALKALINE PHOSPHATASE 38 IU/L (42-121); ALT ALANINE AMINOTRANSFERASE 23 IU/L (10-60); AST ASPARTATE AMINOTRANSFERASE 18 IU/L (10-42); BILIRUBIN,TOTAL 0.3 mg/dL (0.2-1.0); BUN - BLOOD UREA NITROGEN 11 mg/dL (6-20); CARBON DIOXIDE - CO2 26 mmol/L (21-32); CHLORIDE 101 mmol/L (101-111); CHOLESTEROL 245 mg/dL; CREATININE 0.6 mg/dL (0.4-1.0); GFR - MDRD 115 (>89); GLUCOSE 94 mg/dL (70-100); HDL CHOLESTEROL 49 mg/dL; LDL CHOLESTEROL,CALCULATED 170 mg/dL; LDL/HDL RATIO 3.5 (<4.4); POTASSIUM 4.4 mmol/L (3.5-5.0); SODIUM 136 mmol/L (135-145); TOTAL PROTEIN 7.3 g/dL (6.7-8.2); TRIGLYCERIDES 132 mg/dL; VLDL CHOLESTEROL 26 mg/dL
== END 2021-09-12 23:59 | disposition home or self-care (01) ==
LOC: LAB.WCP 11:00
PROVIDERS: ATTEND Nurse Practitioner
DX: Z00.8 Encounter for other general examination (principal); Z13.220 Encounter for screening for lipoid disorders; R53.83 Other fatigue
CPT/HCPCS: 36415; 80050; 80061; 83721

== ENCOUNTER 2022-06-26 11:09 | Outpatient (CLI) | payer OTHER ==
[2022-06-26 18:09] LABS: BASOPHILS # (AUTO) 0.1 10^3/uL (0.0-0.1); BASOPHILS % (AUTO) 1.1 %; EOSINOPHILS # (AUTO) 0.2 10^3/uL (0.0-0.7); HCT - HEMATOCRIT 38.5 % (37.0-47.0); HGB - HEMOGLOBIN 12.5 g/dL (12.0-16.0); LYMPHOCYTES # (AUTO) 1.6 10^3/uL (1.5-3.5); LYMPHOCYTES % (AUTO) 29.2 %; MEAN CORPUSCULAR HEMOGLOBIN 30.1 pg (27.0-31.0); MEAN CORPUSCULAR HGB CONC 32.5 g/dL (32.0-36.0); MEAN CORPUSCULAR VOLUME 92.8 fL (81.0-99.0); MEAN PLATELET VOLUME 10.6 fL (7.9-10.8); MONOCYTES # (AUTO) 0.4 10^3/uL (0.0-1.0); MONOCYTES % (AUTO) 7.9 %; NEUTROPHILS # (AUTO) 3.3 10^3/uL (1.5-6.6); NEUTROPHILS % (AUTO) 58.6 %; PLT - PLATELET COUNT 232 10^3/uL (130-450); RED BLOOD COUNT 4.15 10^6/uL (4.20-5.40); RED CELL DISTRIBUTION WIDTH 12.5 % (12.0-15.0); WHITE BLOOD COUNT 5.6 x10^3/uL (4.8-10.8)
[2022-06-26 18:24] LABS: HCG,QUALITATIVE BLOOD NEGATIVE
[2022-06-26 18:27] LABS: THYROID STIMULATING HORMONE 1.91 uIU/mL (0.34-5.60)
== END 2022-06-26 11:10 | disposition home or self-care (01) ==
LOC: LAB.N 11:09
PROVIDERS: ATTEND Nurse Practitioner
DX: Z32.00 Encounter for pregnancy test, result unknown (principal); R53.83 Other fatigue
CPT/HCPCS: 36415; 82607; 84443; 84703; 85025

== ENCOUNTER 2023-06-27 10:43 | Emergency (ER) | payer OTHER ==
[2023-06-27 10:50] VITALS: BP 141/70; O2SAT 100
[2023-06-27 11:08] LABS: RAPID STREP SCREEN Negative (Negative)
[2023-06-27] MEDS ORDERED: DEXAMETHASONE 10 MG/ML VIAL PO STA (11:20)
[2023-06-27] MEDS ORDERED: CHERRY SYRUP 10 ML UDC PO ONE (11:20)
--- NOTE | 2023-06-27 11:27 | ED Physician Documentation ---
PD HPI URI - Stated complaint Stated Complaint: THROAT PX/CONGESTION - Chief complaint Chief Complaint: Heent - History obtained from History obtained from: Patient - Additional information Additional information: Patient is a 37-year-old female presenting for evaluation of a sore throat, cough and congestion that has been present for the past 1 week. Patient is taken a home COVID test which was negative. She states that other members of her household have tested positive for strep. She denies fever. Has not taken ibuprofen or acetaminophen today. Has been tolerating p.o. 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 - Allergies Allergies/Adverse Reactions: Allergies Allergy/AdvReac Type Severity Reaction Status Date / Time No Known Drug Allergies Allergy Verified 06/27/23 10:48 - Social History Does the pt smoke?: No Smoking Status: Never smoker PD ED PE NORMAL - General General: Alert and oriented X 3, No acute distress, Well developed/nourished - HEENT HEENT: Atraumatic, Moist mucous membranes, Other (Mild bilateral tonsillar enlargement, no exudate, no signs of peritonsillar abscess, normal speech, no trismus) - Neck Neck: Supple, no meningeal sign - Cardiac Cardiac: RRR, No murmur - Respiratory Respiratory: No respiratory distress, Clear bilaterally - Derm Derm: Warm and dry - Neuro Neuro: Normal speech Results - Vitals Vitals: Vital Signs - 24 hr 06/27/23 10:46 Temperature 36.1 C L Heart Rate 68 Respiratory 16 Rate Blood Pressure 141/70 H O2 Saturation 100 Oxygen O2 Source Room air - Labs Labs: Laboratory Tests 06/27/23 10:48 Group A Strep Rapid Negative PD Medical Decision Making - ED course Complexity details: reviewed results, d/w patient ED course: Patient is a 37-year-old female presenting for evaluation of a sore throat. Her vital signs are stable. Home COVID test was negative. Rapid strep test is negative and culture is pending. Patient given a dose of Decadron and counseled on continued supportive care. Patient aware that we will notify her if antibiotics are necessary. Counseled on concerning symptoms to return for. Departure - Departure Disposition: 01 Home, Self Care Clinical Impression: Pharyngitis Condition: Stable Instructions: ED Pharyngitis Viral Comments: Your strep test is negative. Your rapid strep is negative. I am sending it also for culture and we will notify you if this is abnormal and you need an antibiotic. In the meanwhile I given you a dose of a long-acting steroid called Decadron which should help with the inflammation and pain. Please continue with acetaminophen or ibuprofen as needed for fever and pain. Please continue to stay hydrated. Return to the emergency department with any worsening symptoms. Forms: PCP List Discharge Date/Time: 06/27/23 11:33
--- NOTE | 2023-06-30 18:39 | ED Physician Documentation ---
ED Addendum - Addendum Addendum: 06/30/23 18:39 Throat culture reviewed and I sent a prescription for penicillin 500 mg p.o. 4 times daily to [facility] and asked RN to call patient and update her.
== END 2023-06-27 11:33 | disposition home or self-care (01) ==
LOC: ED 10:43
DX: J02.9 Acute pharyngitis, unspecified (principal)
CPT/HCPCS: 87070; 87077; 87430; 99283; A9270